=== PATIENT | male | born 1980 | race Hispanic/Latino ===

== ENCOUNTER 2024-06-10 21:26 | Emergency (ER) | payer OTHER ==
[~2024-06-10] VITALS: Ht 157.5 cm; Wt 90.7 kg
[2024-06-10 21:30] VITALS: PULSE 95; RESP 16; TEMP 98.8
[2024-06-10 22:25] VITALS: BP 142/75; O2SAT 98
== END 2024-06-10 22:22 | disposition home or self-care (01) ==
LOC: ER 21:37
DX: S01.411A Laceration without foreign body of right cheek and temporomandibular area, initial encounter (principal); W20.8XXA Other cause of strike by thrown, projected or falling object, initial encounter; Y92.89 Other specified places as the place of occurrence of the external cause
CPT/HCPCS: 99283